=== PATIENT | male | born 1975 | race Caucasian/White ===

== ENCOUNTER → 2017-05-14 | Outpatient (CLI) | payer OTHER ==
--- NOTE | 2017-05-14 13:37 | WOMENS IMAGING REPORT ---
EXAM DESCRIPTION: BONE DENSITY HIP/SPINE COMPLETED DATE/TIME: 05/14/2017 11:51 am REASON FOR STUDY: OSTEOPROSIS;M81.0 M81.0 AGE-RELATED OSTEOPOROSIS W/O CURRENT PATHOLOGICAL FRAC COMPARISON: None. TECHNIQUE: Dual-Energy X-ray Absorptiometry (DEXA) of the AP Spine and Hip. LIMITATIONS: None. FINDINGS: LUMBAR SPINE: The bone mineral density (BMD) measured from L1-L4 in the AP projection correlates with a T-score of -0.2, which is normal as defined by the World Health Organization. HIP: The bone mineral density (BMD) measured in the left hip correlates with a T-score of 0.2, which is no rmal as defined by the World Health Organization. IMPRESSION: 1. LUMBAR SPINE: NORMAL. 2. HIP: NORMAL. COMMENT: The World Health Organization defines low BMD as follows: T-score: Normal: Greater than -1.0 Osteopenia: Between -1.0 and -2.5 Osteoporosis: Less than -2.5 without fractures Established osteoporosis: Less than -2.5 with fractures In general, you may wish to consider: Diagnosis Treatment Follow-up DEXA Normal BMD Prevention 2-3 years Osteopenia Prevention/Therapy 1-2 years Osteoporosis Therapy Yearly TECHNICAL DOCUMENTATION: JOB ID: [id number] [employer]- All Rights Reserved
== END ==
LOC: WI 11:33
PROVIDERS: ATTEND Internal Medicine Gastroenterology
DX: M81.0 Age-related osteoporosis without current pathological fracture (principal)
CPT/HCPCS: 77080

== ENCOUNTER 2018-02-13 23:48 | Emergency (ER) | payer OTHER ==
[2018-02-14 01:25] LABS: ALANINE AMINOTRANSFERASE 97 U/L (21-72); ALBUMIN 4.5 g/dL (3.5-5.0); ALCOHOL 33 mg/dL (NONE DETECTED); ALKALINE PHOSPHATASE 45 U/L (38-126); ANION GAP 15 (5-19); ASPARTATE AMINO TRANSFERASE 57 U/L (17-59); BILIRUBIN,DIRECT 0.4 mg/dL (0.0-0.4); BILIRUBIN,TOTAL 0.9 mg/dL (0.2-1.3); BLOOD UREA NITROGEN 15 mg/dL (7-20); CALCIUM 9.6 mg/dL (8.4-10.2); CARBON DIOXIDE 23 mmol/L (22-30); CHLORIDE 104 mmol/L (98-107); GLUCOSE 87 mg/dL (75-110); POTASSIUM 4.3 mmol/L (3.6-5.0); SODIUM 141.5 mmol/L (137-145); TOTAL PROTEIN 7.5 g/dL (6.3-8.2)
[2018-02-14 01:26] LABS: ACETAMINOPHEN < 10 ug/mL (10-30); SALICYLATE < 1.0 mg/dL (2.0-20.0)
[2018-02-14 01:32] LABS: ABSOLUTE EOSINOPHILS # (AUTO) 0.1 10^3/uL (0.0-0.6); ABSOLUTE LYMPHOCYTES (AUTO) 2.5 10^3/uL (0.5-4.7); ABSOLUTE MONOCYTES (AUTO) 0.7 10^3/uL (0.1-1.4); BASOPHILS % (AUTO) 0.5 % (0-2); EOSINOPHILS % (AUTO) 1.8 % (0-6); HEMATOCRIT 44.7 % (37.9-51.0); HEMOGLOBIN 15.6 g/dL (13.5-17.0); LYMPHOCYTES % (AUTO) 34.2 % (13-45); MEAN CORPUSCULAR HEMOGLOBIN 33.6 pg (27.0-33.4); MEAN CORPUSCULAR HGB CONC 34.9 g/dL (32.0-36.0); MEAN CORPUSCULAR VOLUME 96 fl (80-97); MONOCYTES % (AUTO) 9.4 % (3-13); PLATELET COUNT 288 10^3/uL (150-450); RED BLOOD COUNT 4.64 10^6/uL (4.35-5.55); RED CELL DISTRIBUTION WIDTH 12.7 % (11.5-14.0); SEGMENTED NEUTROPHILS % (AUTO) 54.1 % (42-78); TOTAL CELLS COUNTED % (AUTO) 100 %; WHITE BLOOD COUNT 7.3 10^3/uL (4.0-10.5)
[2018-02-14 01:44] LABS: APPEARANCE,URINE CLEAR; BILIRUBIN,URINE NEGATIVE (NEGATIVE); COLOR,URINE YELLOW; GLUCOSE, URINE NEGATIVE (NEGATIVE); KETONES,URINE NEGATIVE (NEGATIVE); LEUKOCYTE ESTERASE,URINE NEGATIVE (NEGATIVE); NITRITE,URINE NEGATIVE (NEGATIVE); PROTEIN,URINE NEGATIVE (NEGATIVE); URINE SPECIFIC GRAVITY 1.014; UROBILINOGEN,URINE NEGATIVE mg/dL (<2.0)
[2018-02-14 01:55] LABS: URINE AMPHETAMINES SCREEN UNCONFIRMED POSITIVE; URINE BARBITURATES SCREEN NEGATIVE; URINE BENZODIAZEPINES SCREEN NEGATIVE; URINE MARIJUANA (THC) SCREEN NEGATIVE; URINE PHENCYCLIDINE SCREEN NEGATIVE
[2018-02-14 01:57] LABS: URINE COCAINE SCREEN NEGATIVE
--- NOTE | 2018-02-14 02:03 | ER Document Report ---
ED General - General Chief Complaint: Psych Problem Stated Complaint: PSYCH EVAL Time Seen by Provider: 02/14/18 00:11 TRAVEL OUTSIDE OF THE [place] IN LAST 30 DAYS: No - HPI Patient complains to provider of: Psychiatric evaluation Notes: Patient coming in today for psychiatric evaluation. 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 Patient is currently undergoing a divorce patient admits that divorce has been rough on him and he has a history of depression currently is on Wellbutrin states compliance with his medications. Patient states that his pfndtq-hj-lhv was concern for [place] well[place]. 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 Patient states that because of his rcvksh-kk-hfk's concern and because of his employment in the psychiatric facilities on the [facility] that he was brought to the hospital here at [facility] for further psychiatric evaluation. Patient states he has no HI no SI at this time Patient is accompanied by the on-call psychologist at the [facility]. According to the gentleman patient has had a difficult time with the divorce patient was making suicidal threats today stating that he told his now ex- that the next 3 days he will be gone also apparently the patient texted his son that he was going to harm himself. Patient does not divulge any of this information. Patient denies any smoking drug abuse denies any alcohol - Related Data Allergies/Adverse Reactions: Penicillins Allergy (Verified 02/13/18 23:52) Past Medical History - Social History Smoking Status: Unknown if Ever Smoked Chew tobacco use (# tins/day): No Frequency of alcohol use: Social Drug Abuse: None Family History: Reviewed & Not Pertinent Patient has suicidal ideation: No Patient has homicidal ideation: No Renal/ Medical History: Denies: Hx Peritoneal Dialysis Review of Systems - Review of Systems Constitutional: No symptoms reported EENT: No symptoms reported Cardiovascular: No symptoms reported Respiratory: No symptoms reported Gastrointestinal: No symptoms reported Genitourinary: No symptoms reported Male Genitourinary: No symptoms reported Musculoskeletal: No symptoms reported Skin: No symptoms reported Hematologic/Lymphatic: No symptoms reported Neurological/Psychological: Depression -: Yes All other systems reviewed and negative Physical Exam - Vital signs Vitals: Temp Pulse Resp BP Pulse Ox 98.6 F 93 16 131/85 H 97 02/13/18 23:58 02/13/18 23:58 02/13/18 23:58 02/13/18 23:58 02/13/18 23:58 Interpretation: Normal - General General appearance: Appears well, Alert - HEENT Head: Normocephalic, Atraumatic Eyes: Normal Pupils: PERRL - Respiratory Respiratory status: No respiratory distress Chest status: Nontender Breath sounds: Normal Chest palpation: Normal - Cardiovascular Rhythm: Regular Heart sounds: Normal auscultation Murmur: No - Abdominal Inspection: Normal Distension: No distension Bowel sounds: Normal Tenderness: Nontender Organomegaly: No organomegaly - Back Back: Normal, Nontender - Extremities General upper extremity: Normal inspection, Nontender, Normal color, Normal ROM , Normal temperature General lower extremity: Normal inspection, Nontender, Normal color, Normal ROM , Normal temperature, Normal weight bearing. No: Ursula's sign - Neurological Neuro grossly intact: Yes Cognition: Normal Orientation: AAOx4 Bee Coma Scale Eye Opening: Spontaneous Bee Coma Scale Verbal: Oriented Bee Coma Scale Motor: Obeys Commands [place] Coma Scale Total: 15 Speech: Normal Motor strength normal: LUE, RUE, LLE, RLE Sensory: Normal - Psychological Associated symptoms: Normal affect, Normal mood - Skin Skin Temperature: Warm Skin Moisture: Dry Skin Color: Normal Course - Re-evaluation Re-evalutation: 02/14/18 03:13 Laboratory studies showed positive for amphetamines and also alcohol. At this time and getting conflicting information. Do believe the best course of action will be to hold the patient for appropriate psychiatric evaluation here [facility] in the morning. - Vital Signs Vital signs: Temp Pulse Resp BP Pulse Ox 98.1 F 78 14 154/75 H 98 02/14/18 15:03 02/14/18 15:03 02/14/18 15:03 02/14/18 15:03 02/14/18 15:03 - Laboratory Result Diagrams: 02/14/18 00:45 02/14/18 00:45 Laboratory results interpreted by me: 02/14/18 02/14/18 00:45 00:45 MCH 33.6 H ALT 97 H Salicylates < 1.0 L Acetaminophen < 10 L Discharge - Discharge Clinical Impression: Depression Disposition: PSYCH HOSP/UNIT
--- NOTE | 2018-02-14 12:38 | PSYCHOLOGICAL NOTE ---
Psych Note - Psych Note Psych Note: Reason for Consult: suicidal ideation Pt. reports going through divorce, has HX of depression, takes meds, pt. denies SI/HI, ex fbmfsl-kg-hmc told MPs that he needed an evaluation, pt. reports MP's took weapons away from him [facility] Attending evening physician noted: Patient is accompanied by the on-call psychologist at the [facility]. According to the gentleman patient has had a difficult time with the divorce patient was making suicidal threats today stating that he told his soon-to-be ex - that the next 3 days he will be gone also apparently the patient texted his son that he was going to harm himself. Patient does not divulge any of this information. Upon entering the room patient discloses that he is not suicidal. He discloses that everything was a "misunderstanding." He disclosed that his rvytyt-tm-icl is to a retired milady sethgeant in his answer to everything is to call PMO. He continues state that he was parked in his car in the [facility] area when PMO came up to him. He continues state that he is going through a nasty divorce and that after "20 years she is getting everything." He reports that he frequently goes to the area in [place] to have lunch and relax and denies that this was an attempt at isolating himself. He disclosed that he went there previously just 1 week ago. Patient discloses that he takes medication for depression and ADHD. Behavioral health team contacted [facility] to receive patient's updated medication list which include amphetamine salt 20 mg every afternoon, Wellbutrin 150 mg TAB take 3 tabs by mouth every morning, duloxetine 30 mg tabs take 3 capsules by mouth every day, mixed amphetamine salt ER For 20 mg take 2 capsule by mouth every morning, oxycodone-acetaminophen 5-325 mg take 1 tablet by mouth every 4- 6 hours as needed for severe postop pain take with food. Clinician contacted patient's who disclosed the patient arrived to the home which resulted in a verbal altercation, he was asked to leave however he came back, in which that point the kids got involved "it was ugly." She continues disclose that she had an emergency meeting with her underwater photographer at which she had identified splitting everything 50-50 however when she told the patient he stated "no I want to give you everything... It is all my fault." She continues to state that he asked if she had found his will and provided her access pin information. She continued to report that at that point the patient started to make suicidal comments stating "they would find his body in 3 days" which she states he said in front of the children. She confirms that some of the conversation was in person and somewhere in text. When clinician asked for this information to be sent or for her to come in to show the information she became very agitated stating that she was not putting her children in the middle of everything. Clinician explained that the children do not need to be in the middle that only the text messages need to be seen. At this point patient's 's sister disclosed she had recordings from conversations between the patient and his and asked if they could play that instead. Clinician listened to a voice recording which they identified as the patient and speaking. The patient is heard stating "the only way that you will move on with life is if I am gone. I cannot be responsible adult... I am fuck up... If I am gone they will not have to deal with me." Clinician was notified the patient is requesting to speak with clinician again. Patient has been very agitated pacing and wanting to know status of treatment plan. Upon entering patient's room, clinician noted patient to be sitting in chair with his feet up on the bed. He disclosed that he wants to get out of here and go home to get some sleep. Patient reports that he has not even been evaluated properly since the clinician has not used an assessments "which is unethical and illogical." When clinician asked how an assessment would appropriately identify any information since the first thing the patient stated was he was not suicidal patient, he redirected and started to discuss how his is attempting to embarrassed him. He disclosed that one way to embarrassed someone in our field would be to put them in a psychiatric unit and the one way to embarrassed a officer is to have PMO to come pick him up. He reports that this is all in an effort to make him look bad and court. Clinician spoke with patient's commanding officer Jason Gaona who disclosed he spoke with attending physician the previous evening at which point the patient appeared to be very dismissive and denied suicidal ideation. Patient is believed to have depression and takes some medications. He disclosed the patient is currently going through marital discord which has begun to be been more severe the last 5 months. They received a phone call from the patient's family with concerns of the behavior and comments made by the patient, at which point PMO was sent out to find the patient. He continued to report that PMO found the patient slumped over in his car at a secluded parking lot. Patient did have 2 loaded weapons in his vehicle however they were locked up in cases so did not appear to be in interrupted suicide attempt. There was concern the patient was possibly inebriated at the time PMO interacted with him. In addition the patient has also been dealing with multiple medical issues which may require the patient to medically separate from the instead of retiring. (Clinician notes patient's was unwilling to provide proof of text messages to command also). They are requesting the [facility] because the patient's job is in the psychiatric unit of [facility] and they wanted to ensure the patient received objective evaluation. Patient is alert and orientated to person, place, time and circumstance. Mood is irritable with congruent affect. Patient adamantly denies suicidal and homicidal ideation. Delusions are absent and behaviors congruent with an intact reality based presentation i.e. organized and linear thought process. Eye contact is poor. Conversational speech is short and clearly demonstrates his frustration. Intellectual abilities appear to be high average range. Attention and concentration are fair. Insight, judgment, impulse control is fair. Diagnosis V61.10 (Z63.0) relationship distress with spouse 311 (F32.9) unspecified depressive disorder per history provided by patient 314.01 (F90.9) unspecified attention deficit hyperactivity disorder per history provided by patient Impression\\plan: Patient is recommended to continue under IVC. Patient's command has requested to assume custody of the patient to transfer to [facility]. Dr. Holman was consulted and the care and management this patient; attending physician is agreement with recommendations and disposition.
[2018-02-14] MEDS ORDERED: FAMOTIDINE 20 MG TABLET PO ONE (13:19)
--- NOTE | 2018-02-14 13:30 | EKG REPORT ---
SEVERITY:- NORMAL ECG - SINUS RHYTHM ST ELEV, PROBABLE NORMAL EARLY REPOL PATTERN : Confirmed by: Gabe Gómez MD 14-Feb-2018 13:30:26
[2018-02-14 15:04] VITALS: BP 154/75
--- NOTE | 2018-02-14 19:55 | ER Document Report ---
Doctor's Note Notes: 02/14/18 19:53 Patient was assessed just before his transfer. He was talking with Regino, our mental health provider today, and I joined him in his room and made him aware that we will be transferring him to the [facility] for further care and evaluation. Reviewing his chart, all of his vital signs were normal. His lab studies were essentially normal except for alcohol level of 33 and being positive for amphetamines on his drug screen. Just to note: Patient's amphetamine prescriptions for the past few months seem to me to be excessive. Patient also has a history of Crohn's disease and Sjogren's syndrome. He had recent right elbow surgery. I spent considerable amount time on the phone with the physician at [facility] who agreed to accept the patient in transfer.
== END 2018-02-14 16:27 ==
LOC: ER 23:48
DX: F32.9 Major depressive disorder, single episode, unspecified (principal); F90.9 Attention-deficit hyperactivity disorder, unspecified type; Z63.0 Problems in relationship with spouse or partner; Z88.0 Allergy status to penicillin
CPT/HCPCS: 36415; 80053; 80307; 81001; 85025; 93005; 93010; 99285